=== PATIENT | female | born 1980 | race Caucasian/White ===

== ENCOUNTER 2018-05-20 18:43 | Emergency (ER) | payer OTHER ==
[~2018-05-20] VITALS: Ht 167.6 cm; Wt 86.2 kg
[2018-05-20] MEDS ORDERED: SULINDAC 200MG200 M1 (19:03)
[2018-05-20] MEDS ORDERED: NORCO 5-325 TA1 EACH PO (19:23)
[2018-05-20 21:32] VITALS: BP 132/83
== END 2018-05-20 21:33 | disposition home or self-care (01) ==
LOC: M.ERS 18:43
DX: M25.462 Effusion, left knee (principal); M25.562 Pain in left knee; F17.210 Nicotine dependence, cigarettes, uncomplicated

== ENCOUNTER 2020-08-08 13:13 | Emergency (ER) | payer OTHER ==
[~2020-08-08] VITALS: Ht 165.1 cm; Wt 86.2 kg
[~2020-08-08 13:13] MED LIST: NORCO 5-325 TA1 EACH PO; SULINDAC 200MG200 M1
[2020-08-08 13:43] LABS: ABSOLUTE BASOPHILS 0.2 thou/uL (0.0-0.2); ABSOLUTE EOSINOPHILS 0.2 thou/uL (0.0-0.7); ABSOLUTE LYMPHOCYTES 3.2 thou/uL (0.8-5.3); ABSOLUTE NEUTROPHILS 8.5 thou/uL (1.6-8.1); BASOPHILS 1.3 %; EOSINOPHILS 1.5 %; HEMOGLOBIN 14.8 gm/dL (12.0-15.0); LYMPHOCYTES 24.6 %; MCH 33.8 pg (26.0-34.0); MCHC 34.3 g/dL (28.0-37.0); MCV 98.4 fL (80.0-100.0); MONOCYTES 7.7 %; MPV 6.2 fl. (7.2-11.1); NUCLEATED RBCS 0 /100WBC; PLATELET COUNT* 439 thou/uL (150-400); POLYS 64.9 %; RBC 4.37 mil/uL (4.20-5.00); RDW-CV 12.8 % (10.5-14.5)
[2020-08-08 13:53] LABS: CREATININE 0.8 mg/dL (0.6-1.3); POTASSIUM 4.3 mmol/L (3.5-5.1)
[2020-08-08 13:53] LABS: URINE BILIRUBIN NEGATIVE (Negative); URINE BLOOD TRACE (Negative); URINE CLARITY CLEAR; URINE COLOR YELLOW; URINE GLUCOSE-RANDOM NEGATIVE (Negative); URINE KETONES NEGATIVE (Negative); URINE LEUKOCYTES-REFLEX NEGATIVE (Negative); URINE NITRITE-REFLEX NEGATIVE (Negative); URINE PROTEIN TRACE (Negative); URINE SPECIFIC GRAVITY 1.025 (1.005-1.030); URINE UROBILINOGEN 0.2 E.U./dl (0.2-1.0)
[2020-08-08 13:57] LABS: ALBUMIN 3.7 g/dL (3.4-5.0); TOTAL BILIRUBIN 0.4 mg/dL (<0.1-1.0); TOTAL PROTEIN 7.7 g/dL (6.4-8.2)
[2020-08-08 14:00] LABS: AMP/METHAMP Negative (Negative); BARBITURATES Negative (Negative); BENZODIAZEPINES Negative (Negative); COCAINE Negative (Negative); METHADONE Negative (Negative); OPIATES Negative (Negative); PCP Negative (Negative); THC Negative (Negative)
[2020-08-08] MEDS ORDERED: ZANAFLEX4 MG PO (15:18)
[2020-08-08] MEDS ORDERED: PERCOCET 5-3251 EACH PO (15:22)
[2020-08-08 15:34] VITALS: BP 117/93
--- NOTE | 2020-08-08 16:35 | EKG ---
[place] [address] ELECTROCARDIOGRAM REPORT Name: CONSUELO WAGNER Room: [facility]#: [id number] Admission: 08/08/20 Attend Phys: Discharge: 08/08/20 Date of : 82 Date of Service: 08/08/20 1334 Report #: [id number] THIS REPORT FOR: //name// [facility] ED Test Date: 2020-08-08 Test Time: 13:34:27 Pat Name: CONSUELO WAGNER Department: Room: Gender: F [employer]: [facility] : 1980 Requested By: Gayla Esparza Order Number: [id number] MD: Lionel Staples Measurements Intervals [place] Rate: 118 P: 27 ID: [id number] QRS: 21 QRSD: 85 T: 29 QT: 326 QTc: 457 Interpretive Statements Sinus tachycardia No previous ECG available for comparison Electronically Signed On 08-08-2020 16:35:22 [employer] by Lionel Staples [email or web address] <ELECTRONICALLY SIGNED> By: Lionel Staples MD, [facility] 08/08/20 1635 D: [id number] Lionel Staples MD, FACC /EPI
== END 2020-08-08 15:36 | disposition home or self-care (01) ==
LOC: M.ERS 13:13
PROVIDERS: Nurse Practitioner Family
DX: R10.12 Left upper quadrant pain (principal); M62.838 Other muscle spasm

== ENCOUNTER 2021-03-22 12:22 | Emergency (ER) | payer BC ==
[~2021-03-22] VITALS: Ht 167.6 cm; Wt 90.7 kg
[~2021-03-22 12:22] MED LIST changes: +PERCOCET 5-3251 EACH PO; +ZANAFLEX4 MG PO
[2021-03-22] MEDS ORDERED: IBUPROFEN 600600 M1 PO (14:04)
[2021-03-22] MEDS ORDERED: HYDROCODON-ACE1 EAC7 PO ×2 (14:12→14:20)
[2021-03-22 14:14] VITALS: BP 132/70
== END 2021-03-22 14:15 | disposition home or self-care (01) ==
LOC: M.ERS 12:22
DX: M25.562 Pain in left knee (principal); G89.29 Other chronic pain

== ENCOUNTER 2021-04-12 12:49 | Emergency (ER) | payer OTHER, BC ==
[~2021-04-12] VITALS: Ht 167.6 cm; Wt 90.7 kg
[~2021-04-12 12:49] MED LIST changes: +HYDROCODON-ACE1 EAC7 PO; +IBUPROFEN 600600 M1 PO
[2021-04-12] MEDS ORDERED: MOBIC7.5 MG PO (13:26)
[2021-04-12 13:43] VITALS: BP 143/96
== END 2021-04-12 13:44 | disposition home or self-care (01) ==
LOC: M.ERS 12:49
DX: G89.29 Other chronic pain (principal); M25.562 Pain in left knee; M25.462 Effusion, left knee; Z98.890 Other specified postprocedural states

== ENCOUNTER 2021-06-06 08:39 | Emergency (ER) | payer OTHER ==
[~2021-06-06] VITALS: Ht 167.6 cm; Wt 90.7 kg
[~2021-06-06 08:39] MED LIST changes: +MOBIC7.5 MG PO
[2021-06-06 09:17] LABS: INFLUENZA A ANTIGEN Negative (Negative); INFLUENZA B ANTIGEN Negative (Negative)
[2021-06-06] MEDS ORDERED: PROAIR HFA8.5 GM INH (09:57)
[2021-06-06] MEDS ORDERED: PREDNISONE 20 M20 M1 PO (09:57)
[2021-06-06 10:15] VITALS: BP 143/103
== END 2021-06-06 10:15 | disposition home or self-care (01) ==
LOC: M.ERS 08:39
PROVIDERS: Emergency Medicine
DX: J20.9 Acute bronchitis, unspecified (principal); Z20.822 Contact with and (suspected) exposure to COVID-19; F17.210 Nicotine dependence, cigarettes, uncomplicated